=== PATIENT | male | born 1965 | race Caucasian/White ===

== ENCOUNTER 2018-02-17 20:53 | Emergency (ER) | payer SELFPAY ==
[~2018-02-17] VITALS: Ht 170.2 cm; Wt 56.0 kg
[2018-02-17 23:41] LABS: HEMATOCRIT. 41.6 % (42.0-52.0); HEMOGLOBIN. 14.7 g/dL (14.0-18.0); MEAN CORPUSCULAR HEMOGLOBIN 37.4 pg (28.0-32.0); MEAN PLATELET VOLUME 8.5 fl (7.4-10.4); PLATELET 116 x1000/uL (130-400); RED BLOOD CELL COUNT 3.92 mill/uL (4.7-6.1); RED CELL DISTRIBUTION WIDTH 13.5 % (11.6-14.6)
[2018-02-17 23:49] LABS: CHLORIDE 97 mEq/L (98-107)
[2018-02-17 23:54] LABS: ETHANOL BLOOD < 10 mg/dL
[2018-02-17 23:59] LABS: PLATELET ESTIMATE DECREASED
[2018-02-18 00:01] LABS: AMMONIA < 25 uMol/L (<32); INR 1.1
[2018-02-18 01:07] VITALS: BP 135/88
== END 2018-02-18 01:07 | disposition home or self-care (01) ==
LOC: ER 21:11
DX: G93.40 Encephalopathy, unspecified (principal); S00.83XA Contusion of other part of head, initial encounter; X58.XXXA Exposure to other specified factors, initial encounter; Y93.89 Activity, other specified; Y92.89 Other specified places as the place of occurrence of the external cause; Y99.8 Other external cause status
CPT/HCPCS: 36415; 70450; 71045; 80053; 80307; 80329; 82140; 85025; 85610; 93005; 99285; G0482; Z7610